=== PATIENT | female | born 1985 | race African-American/Black ===

== ENCOUNTER 2020-04-26 11:58 | Emergency (ER) | payer MEDICAID ==
[~2020-04-26] VITALS: Ht 165.1 cm; Wt 90.7 kg
[2020-04-26] MEDS ORDERED: IV NORMAL SALINE 1000 ML BAG IV ONE (12:30)
[2020-04-26] MEDS ORDERED: ONDANSETRON 4 MG/2 ML VIAL IV ONE ×2 (12:30→13:45)
--- NOTE | 2020-04-26 12:30 | NUR ---
pt presents to ED with c/o of nausea, vomitting, diarrhea and abdominal pain since 99. Placed in [facility] 2, gowned. Placed on monitor. NAD noted. Seen and examined by Dr. Dillon
[2020-04-26] MEDS ORDERED: ONDANSETRON 4 MG/2 ML VIAL ONE ×2 (12:38→13:45)
[2020-04-26 12:44] LABS: BASOPHILS % (AUTO) 0.1 % (0.0-2.0); HEMATOCRIT 41.1 % (31.2-41.9); LYMPHOCYTES # (AUTO) 0.8 K/uL (20.0-40.0); LYMPHOCYTES % (AUTO) 6.2 % (20.5-51.5); MEAN CORPUSCULAR HEMOGLOBIN 30.6 uug (24.7-32.8); MEAN CORPUSCULAR HGB CONC 34 g/dL (32.3-35.6); MEAN CORPUSCULAR VOLUME 89.8 fL (75.5-95.3); MONOCYTES # (AUTO) 0.3 K/uL (2.0-10.0); MONOCYTES % (AUTO) 2.5 % (0.0-11.0); NEUTROPHILS # (AUTO) 11.1 K/uL (1.8-8.9); NEUTROPHILS % (AUTO) 91.2 % (38.5-71.5); PLATELET COUNT (AUTO) 382 K/uL (179-408); RED BLOOD CELL COUNT(AUTO) 4.57 MIL/uL (3.63-4.92); WHITE BLOOD COUNT (AUTO) 12.2 K/uL (3.8-11.8)
[2020-04-26 12:48] LABS: CREATININE 0.8 mg/dL (0.6-1.3); POTASSIUM 3.7 mmol/L (3.5-5.1)
[2020-04-26 12:59] LABS: BILIRUBIN,DIRECT 0.1 mg/dL (0.0-0.2); BILIRUBIN,TOTAL 0.4 mg/dL (0.2-1.0); TOTAL PROTEIN, SERUM 8.8 g/dL (6.4-8.2)
[2020-04-26] MEDS ORDERED: ONDA4TAB11 PO (13:06)
--- NOTE | 2020-04-26 13:38 | NUR ---
pt c/o of abdominal pain. Dr Dillon made aware. Stated he will come to see patient.
[2020-04-26] MEDS ORDERED: METOCLOPRAMIDE HCL 10 MG/2 ML VIAL IV ONE (14:00)
[2020-04-26] MEDS ORDERED: METOCLOPRAMIDE HCL 10 MG/2 ML VIAL ONE (14:01)
--- NOTE | 2020-04-26 15:05 | NUR ---
Per Dr. Dillon, pt stable for discharge. DC instructions and prescriptions given and reviewed with pt. Verbalized understanding. Pt verbalized feeling better after IV meds and IV fluids. IV dc'd noted with tip intact. Left ER in stable condition. Ambulating with steady gait.
[2020-04-26 15:10] VITALS: BP 128/67
== END 2020-04-26 15:08 | disposition home or self-care (01) ==
LOC: ER 11:58
DX: A05.9 Bacterial foodborne intoxication, unspecified (principal); F90.9 Attention-deficit hyperactivity disorder, unspecified type; R03.0 Elevated blood-pressure reading, without diagnosis of hypertension
CPT/HCPCS: 36415; 80048; 80076; 83690; 85025; 96361; 96374; 96375; 96376; 99284; J2405 ×2; J2765; A4663